=== PATIENT | female | born 1960 | race Caucasian/White ===

== ENCOUNTER 2016-11-23 13:03 | Inpatient (IN) ==
[2016-11-23] MEDS ORDERED: Ipratropium/Albuterol Neb 3 ML IH ONE (13:53)
--- NOTE | 2016-11-23 14:02 | Emergency Department Note ---
Disposition Clinical Impression: Pneumonia, Hypoxemia Dyspnea Qualifiers: Dyspnea type: shortness of breath Qualified Code(s): R06.02 - Shortness of breath Disposition: Admitted As Inpatient Condition: Fair Time of Disposition: 17:30 General Adult HPI - General Chief complaint: ED Extremity Problem,Nontraumatic Stated complaint: R/O PE/pneumonia/sepsis Time Seen by Provider: 11/23/16 13:45 Source: patient Mode of arrival: ambulatory Limitations: no limitations Nursing Notes Reviewed: Yes Vital Signs Reviewed: Yes - History of Present Illness HPI Narrative: Patient is a 56-year-old female who presents to [facility] ED with a chief complaint of difficulty breathing. States her symptoms started a few days ago. She recently had knee surgery approximately one 1 week ago. Patient was seen by the orthopedic physician's litigation assistant today who was concerned for possible pulmonary embolus versus pneumonia. Patient denies any prior history of COPD or proximal difficulty breathing. Patient does say she had an upper respiratory infection prior to the surgery for about 10 days. She did not take any medications for this. States she has had more and more exertional difficulty breathing. Denies any nausea, vomiting. She did have fever up to 101 today. No problems with urination or bowel movements. Only past medical history is chronic pain that she has had multiple leg surgeries and back surgeries. Onset (ago): day(s) Radiation: non-radiation Pain Severity: moderate Pain Scale: 5 Consistency: Worsening Improves with: nothing Worsens with: other (exertion) Associated symptoms: Reports: cough, fever/chills, headaches, shortness of breath. Denies: chest pain, nausea/vomiting Treatments Prior to Arrival: none - Related Data Home Medications Medication Instructions Recorded Confirmed Albuterol Sulfate [Albuterol 2 puff IH Q4HR PRN 11/22/15 11/23/16 Inhaler] Furosemide [Lasix] 20 mg PO DAILY PRN 11/22/15 11/23/16 Omeprazole [PriLOSEC] 40 mg PO DAILY 11/22/15 11/23/16 Oxymorphone HCl [Opana ER] 30 mg PO Q12H 11/22/15 11/23/16 Oxymorphone HCl [Opana ER] 40 mg PO Q12H 11/22/15 11/23/16 diazePAM [Valium] 10 mg PO TID 11/22/15 11/23/16 Oxycodone HCl [Oxycodone HCl] 15 mg PO Q4H PRN 11/23/16 11/23/16 Previous Rx's Medication Instructions Recorded Aspirin Enteric Coated [Aspirin EC] 162 mg PO BID #20 tablet. 11/16/16 Clindamycin [Cleocin] 150 mg PO Q6HR #7 capsule 11/16/16 Allergies Allergy/AdvReac Type Severity Reaction Status Date / Time Penicillins [PCN] AdvReac Rash Verified 11/16/16 08:45 All systems ED: reviewed and negative except as stated. Past Medical History - Past Medical History Attestation: Yes The following information was validated with the patient. Source: patient Medical history: Reports: arthritis, asthma, GERD Surgical history: Reports: cholecystectomy, knee replacement Psychiatric history: Reports: anxiety, depression - Social History Smoking Status: Never smoker Smokeless Tobacco Status: No Alcohol use: Reports: none Drug use: Reports: none Physical Exam - General Limitations: no limitations General appearance: alert, in no apparent distress - Head Head exam: atraumatic, normocephalic, normal inspection - Eye Eye exam: Present: normal appearance, PERRL, EOMI - ENT ENT exam: normal exam, normal oropharynx, mucous membranes moist - Neck Neck exam: Present: normal inspection, full ROM, trachea midline - Chest Chest inspection: Present: normal inspection, symmetric chest wall rise - Respiratory Respiratory exam: Present: wheezes - Cardiovascular Cardiovascular exam: Present: normal rhythm, tachycardia - Abdominal Exam Abdominal exam: Present: soft, Non-Tender. Absent: tenderness, distention, guarding, rebound, rigidity - Extremities Exam Extremities exam: Present: normal inspection, full ROM. Absent: tenderness, pedal edema - Neurological Exam Neurological exam: Present: alert - Psychiatric Psychiatric exam: Present: normal affect, normal mood - Skin Skin exam: Present: warm, dry, intact, normal color Course Course Narrative: Patient seen and examined. Recent knee surgery with now worsening exertional dyspnea. Concern for pneumonia versus PE. Patient is febrile and mildly tachycardic. We will get a cardiopulmonary workup. If renal function okay we will get a CT of the chest. - Reevaluation(s) Reevaluation #1: CTA of the chest did not show signs of a pulmonary embolus. Did show bibasilar atelectasis. With her fever, cough and shortness of breath as well as elevated white count, we will go ahead and treat her as sepsis from community acquired pneumonia. Patient was given 2 L IV fluid boluses. She was also started on IV azithromycin and ceftriaxone. We did do an ambulation test with pulse ox and patient desaturated to 87% with exertion. I spoke with patient about admission and patient is in agreement. I spoke with the hospitalists Shanelle Montana who has accepted patient for admission. Time: 18:22 Vital Signs Temperature 99.7 F H 11/23/16 13:07 Pulse Rate 109 11/23/16 13:07 Respiratory Rate 20 11/23/16 13:07 Blood Pressure 87/55 11/23/16 13:07 O2 Sat by Pulse Oximetry 91 11/23/16 13:07 Temperature 98.6 F 11/24/16 06:52 Pulse Rate 90 11/24/16 06:52 Respiratory Rate 16 11/24/16 06:52 Blood Pressure 150/87 11/24/16 06:52 O2 Sat by Pulse Oximetry 95 11/24/16 06:52 Oxygen Delivery Oxygen Delivery Room Air Medical Decision Making - Medical Records Medical records reviewed: Yes I reviewed the patient's medical records. - Lab Data Lab results reviewed: Yes I reviewed the patient's lab results. Result diagrams: 11/24/16 04:25 11/24/16 04:25 Lab Results 11/23/16 11/23/16 11/23/16 Range/Units 14:19 14:19 14:19 WBC 22.5 H (4.3-11.1) K/mcL RBC 4.63 (3.82-4.97) M/mcL Hgb 11.4 L (11.5-15.4) g/dL Hct 37.3 (35.3-44.9) % MCV 80.6 L (83.0-100.0) fL MCH 24.6 L (28.0-33.3) pg MCHC 30.6 L (31.6-35.5) g/dL RDW 14.5 (11.5-14.5) % Plt Count 387 (140-400) K/mcL MPV 9.4 (9.4-12.4) fL Immature Gran % 0.9 (0-4) % Seg Neutrophils % 86.7 % Lymphocytes % 6.8 % Monocytes % 2.9 % Eosinophils % 2.4 % Basophils % 0.3 % Neutrophils # 19.5 H (1.6-8.9) K/mcL Lymphocytes # 1.5 (0.6-4.6) K/mcL Monocytes # 0.7 (0.0-1.3) K/mcL Eosinophils # 0.6 (0.0-0.6) K/mcL Basophils # 0.1 (0.0-0.2) K/mcL PT (9.4-12.1) Seconds INR APTT (26.0-36.0) Seconds Sodium 136 (136-145) mEq/L Potassium 4.0 (3.5-4.5) mEq/L Chloride 100 (98-109) mEq/L Carbon Dioxide 31 H (19-29) mEq/L BUN 7 (7-20) mg/dL Creatinine 0.76 (0.57-1.11) mg/dL Est GFR ( Amer) > 60 (> 60) Est GFR (Non-Af Amer) > 60 (> 60) BUN/Creatinine Ratio 9 (6-26) Glucose 138 H (70-99) mg/dL Calculated Osmolality 282 (280-300) Lactic Acid (0.5-2.2) mmol/L Calcium 9.3 (8.6-10.8) mg/dL Troponin I 0.00 (0-0.03) ng/mL B-Natriuretic Peptide (0-100) pg/mL 11/23/16 11/23/16 11/23/16 Range/Units 14:19 16:17 16:17 WBC (4.3-11.1) K/mcL RBC (3.82-4.97) M/mcL Hgb (11.5-15.4) g/dL Hct (35.3-44.9) % MCV (83.0-100.0) fL MCH (28.0-33.3) pg MCHC (31.6-35.5) g/dL RDW (11.5-14.5) % Plt Count (140-400) K/mcL MPV (9.4-12.4) fL Immature Gran % (0-4) % Seg Neutrophils % % Lymphocytes % % Monocytes % % Eosinophils % % Basophils % % Neutrophils # (1.6-8.9) K/mcL Lymphocytes # (0.6-4.6) K/mcL Monocytes # (0.0-1.3) K/mcL Eosinophils # (0.0-0.6) K/mcL Basophils # (0.0-0.2) K/mcL PT 13.0 H (9.4-12.1) Seconds INR 1.2 APTT 28.1 (26.0-36.0) Seconds Sodium (136-145) mEq/L Potassium (3.5-4.5) mEq/L Chloride (98-109) mEq/L Carbon Dioxide (19-29) mEq/L BUN (7-20) mg/dL Creatinine (0.57-1.11) mg/dL Est GFR ( Amer) (> 60) Est GFR (Non-Af Amer) (> 60) BUN/Creatinine Ratio (6-26) Glucose (70-99) mg/dL Calculated Osmolality (280-300) Lactic Acid 1.6 (0.5-2.2) mmol/L Calcium (8.6-10.8) mg/dL Troponin I (0-0.03) ng/mL B-Natriuretic Peptide 60 (0-100) pg/mL - Radiology Data Radiology results reviewed: Yes I reviewed the patient's radiology results. Chest X-Ray 11/23/16 13:54 IMPRESSION: 1. No acute cardiopulmonary disease. D/ / Neal Keita MD / Neal Keita MD Interpreting Provider: Neal Keita MD Chest CTA 11/23/16 15:03 IMPRESSION: 1. No evidence of pulmonary embolus. 2. Bibasilar atelectasis. 3. Right lower lobe 5 mm nodule. Please see below for follow-up recommendations. RECOMMENDATIONS: Fleischner Society guidelines for follow-up and management of incidentally detected pulmonary nodules: Single Solid Nodule: Nodule size less than 6 mm In a low-risk patient, no routine follow-up. In a high-risk patient, optional CT at 12 months. - Low risk patients include individuals with minimal or absent history of smoking and other known risk factors. - High risk patients include individuals with a history or smoking or known risk factors. Radiology 2017 http://pubs.rsna.org/doi/full/10.1148/radiol.[email or web address] D/ / 11/23/2016 16:50:49 Gerry Benítez MD / Renee Rolle Interpreting Provider: Gerry Benítez MD - EKG Data EKG #1 EKG attestation: Yes I reviewed and interpreted this EKG. EKG results narrative: EKG done at 1401 shows normal sinus rhythm with a rate of [address] elevation or depression. There does appear to be a prominent Q-wave in lead 3 and inverted T waves. Normal axis. Attestation Statement - Attestation Attestation: I, Shen Flores, examined this patient and my medical decision-making was reviewed with the GEAR GENERATOR SET UP OPERATOR/PA/Advanced Practice Nurse/Resident Physician. I agree with the documented findings, disposition and treatment plan as described except to the extent set forth below. 56-year-old female presents with concerns of increasing shortness of breath. Patient states that she had a repair of her right patella within the past week, she is in a long leg cast of the right lower extremity. Patient states she becomes increasingly dyspneic with minimal exertion. Patient does report however that her symptoms had started prior to her surgery and have become increasingly worse. Patient was sent to the emergency department for rule out of PE by her primary care provider. CT angiogram of the chest does not reveal acute PE however does show atelectasis versus infiltrate of the bilateral basilar areas. Patient became hypoxic with ambulation. She will be started on antibiotics for possible pneumonia secondary to her elevated white count and deteriorating condition of the past week. Patient is comfortable with the plan for admission to hospital for further care and evaluation.
[2016-11-23] MEDS ORDERED: 0.9 % Sodium Chloride 1,000 ML IVC ONE ×2 (14:34→14:56)
[2016-11-23 14:36] LABS: Basophils # 0.1 K/mcL (0.0-0.2); Basophils % 0.3 %; Eosinophils # 0.6 K/mcL (0.0-0.6); Eosinophils % 2.4 %; Hematocrit 37.3 % (35.3-44.9); Hemoglobin 11.4 g/dL (11.5-15.4); Immature Granulocytes % 0.9 % (0-4); Lymphocytes # 1.5 K/mcL (0.6-4.6); Lymphocytes % 6.8 %; Mean Corpuscular HGB Conc 30.6 g/dL (31.6-35.5); Mean Corpuscular Hemoglobin 24.6 pg (28.0-33.3); Mean Corpuscular Volume 80.6 fL (83.0-100.0); Mean Platelet Volume 9.4 fL (9.4-12.4); Monocytes # 0.7 K/mcL (0.0-1.3); Monocytes % 2.9 %; Neutrophils # 19.5 K/mcL (1.6-8.9); Platelet Count 387 K/mcL (140-400); Red Blood Count 4.63 M/mcL (3.82-4.97); Red Cell Distribution Width 14.5 % (11.5-14.5); Segmented Neutrophils % 86.7 %
[2016-11-23 14:42] LABS: BUN/Creatinine Ratio 9 (6-26); Blood Urea Nitrogen 7 mg/dL (7-20); Calcium 9.3 mg/dL (8.6-10.8); Carbon Dioxide 31 mEq/L (19-29); Chloride 100 mEq/L (98-109); Glucose 138 mg/dL (70-99); Osmolality,Calculated 282 (280-300); Sodium 136 mEq/L (136-145); eGFR For African Americans > 60 (> 60); eGFR For Non-African Americans > 60 (> 60)
[2016-11-23] MEDS ORDERED: Azithromycin 500 MG in D5% in Water 250 ML IVPB ONE (15:56)
[2016-11-23 16:41] LABS: INR 1.2
[2016-11-23 16:43] LABS: Activated Partial Thrombo Time 28.1 Seconds (26.0-36.0)
--- NOTE | 2016-11-23 16:50 | Electrocardiograph Report ---
[place] [facility] Test Date: 2016-11-23 Pat Name: Ashley Solis Department: 105 Room: Gender: F Publicist: EVELINA : [id number] Requested By: Martina Bentley Order Number: [id number] Reading MD: Marcial Chacon MD Measurements Intervals [place] Rate: 88 P: 46 [place]: 155 QRS: 23 QRSD: 105 T: 20 QT: 363 QTc: 408 Interpretive Statements SINUS RHYTHM Electronically Signed On 11-23-2016 16:48:29 EDT by Marcial Chacon MD
--- NOTE | 2016-11-23 17:56 | Internal Med History&Physical ---
<Francia Killian - Last Filed: 11/23/16 18:37> Date of Encounter: 11/23/16 Time of Encounter: 17:30 Assessment and Plan (1) Pneumonia Current visit: Yes Status: Acute Patient reports dyspnea for 2 days, nonproductive cough today, myalgia, fatigue and fever 102 today. She was sent by Dr. Jorge's office for evaluation. On arrival to the emergency room her room air sats were 91%. She was found to be tachycardic with a low-grade fever, and hypotensive. She was given antibiotics, fluid boluses and vitals have returned to normal. Patient is one-week status post right patella surgery. She denies any sick contacts at home. Her lungs are clear throughout. She does have a history of asthma that is well controlled. Patient has leukocytosis, white cell count 22.5. Both CT and L and chest x-ray are negative for any acute cardiopulmonary disease , PE, and infiltrates. CTA chest shows bibasilar atelectasis in the right lower lobe 5 mm nodule that does not require any follow-up. We will continue Rocephin 1 g IV daily Zithromax 500 mg IV daily Oxygen titrated to maintain sats greater than 92% Monitor labs Continuous pulse ox Telemetry Qualifiers: Pneumonia type: due to unspecified organism Laterality: unspecified laterality Lung location: unspecified part of lung Qualified Code(s): J18.9 - Pneumonia, unspecified organism (2) Leukocytosis Current visit: Yes Status: Acute White count 22.5. Patient is being treated with Rocephin and Zithromax IV. Pt has recent surgical incision to R knee that cannot be visualized due to R full leg cast. Blood culture and urine cultures pending. Continue to monitor labs CT R knee ordered and pending. Qualifiers: Leukocytosis type: unspecified Qualified Code(s): D72.829 - Elevated white blood cell count, unspecified (3) Sepsis Current visit: Yes Status: Acute Pt presented to the ED and met sepsis criteria with hypotension, fever, tachycardia, and leukocytosis. She was treated with fluid boluses and IV antibiotics. Lactic acid 1.6. Vitals have returned to WNL, leukocytosis remains. Continue to monitor labs and vitals Fluid boluses for hypotension and tachycardia Tylenol for fever Qualifiers: Sepsis type: sepsis due to unspecified organism Qualified Code(s): A41.9 - Sepsis, unspecified organism (4) Dyspnea Current visit: Yes Status: Acute Plan as above. Qualifiers: Dyspnea type: shortness of breath Qualified Code(s): R06.02 - Shortness of breath (5) Painful total knee replacement Current visit: No Status: Acute Patient is 1 week postop right patella surgery. She said that she has had multiple casts on her legs due to irritation. She has a cast currently that is from toe to hip on the right side. She does have noticeable swelling to right lower extremity what is visible. We are unable to see the incision or extremity due to the cast. Continue pain medication Qualifiers: Encounter type: subsequent encounter Qualified Code(s): T84.84XD - Pain due to internal orthopedic prosthetic devices, implants and grafts, subsequent encounter (6) HTN (hypertension) Current visit: No Status: Chronic Continue home medications. Monitor vital signs per orders. Qualifiers: Hypertension type: essential hypertension Qualified Code(s): I10 - Essential (primary) hypertension (7) Obesity Current visit: No Status: Chronic Chronic. Lifestyle changes. Qualifiers: Obesity type: unspecified obesity type Obesity severity: unspecified obesity severity Qualified Code(s): E66.9 - Obesity, unspecified (8) GERD (gastroesophageal reflux disease) Current visit: No Status: Chronic Continue home medications. Qualifiers: Esophagitis presence: esophagitis presence not specified Qualified Code(s) : K21.9 - Gastro-esophageal reflux disease without esophagitis (9) Asthma Current visit: No Status: Chronic Well-controlled. Patient normally only uses a rescue inhaler. Will have albuterol treatments when necessary Duo nebs when necessary Qualifiers: Asthma severity: unspecified severity Asthma complication type: uncomplicated Qualified Code(s): J45.909 - Unspecified asthma, uncomplicated (10) DVT prophylaxis Current visit: Yes Status: Acute SHIRA rivas, patient has been ambulatory status post surgery. Will encourage ambulation. Internal Medicine - H&P: HPI Chief complaint: Fever, cough Admitted From: Home Plans for Post Hospital Care: Home History of present illness: Ms. Solis is a 56 year old female with history of asthma, hypertension, GERD, obesity, recent right knee surgery. She presents to the emergency department today with a day history of dry, nonproductive cough and difficulty breathing. She states today she had a fever of 102 degrees at home, she states that she did not feel well and she had body aches. She denies any sick contacts. She called Dr. Jorge's office and was told to come to the emergency department. On arrival her room air sats were 91%. She had a low-grade fever, she was hypotensive, and tachycardic. She was given fluid boluses and antibiotics and vital signs are stable now. She is 97% on room air, monitor is normal sinus rhythm with a rate of 88, blood pressure is 134/66. Patient is one week postop. She had a right patella surgery by Dr. Jorge. Her leg is in a full cast from toes to hip. We are unable to visualize the wound. Patient's chest x-ray was negative for cardiopulmonary disease. Her chest CT angios showed no evidence of pulmonary embolus, bibasilar atelectasis, and a right lower lobe 5 mm nodule that does not require follow-up. She does have leukocytosis white count was 22.5. We will continue to treat her with Rocephin and Zithromax. We will redraw labs in the morning and reassess. Past Med Surg Social Fam HX - Past Medical History Medical history: arthritis, asthma, GERD Psychiatric history: anxiety, depression - Past Surgical History Surgical History: cholecystectomy, knee replacement - Social History Smoking Status: Never smoker Smokeless Tobacco Status: No Alcohol use: none Drug use: none - Family History Father Hx Family Cancer: Yes (cancer) Internal Medicine - H&P: Meds Albuterol Sulfate [Albuterol Inhaler] 2 puff IH Q4HR PRN 11/22/15 [History] Furosemide [Lasix] 20 mg PO DAILY PRN 11/22/15 [History] Omeprazole [PriLOSEC] 40 mg PO DAILY 11/22/15 [History] Oxymorphone HCl [Opana ER] 30 mg PO Q12H 11/22/15 [History] Oxymorphone HCl [Opana ER] 40 mg PO Q12H 11/22/15 [History] diazePAM [Valium] 10 mg PO TID 11/22/15 [History] Aspirin Enteric Coated [Aspirin EC] 162 mg PO BID #20 tablet. 11/16/16 [Rx] Clindamycin [Cleocin] 150 mg PO Q6HR #7 capsule 11/16/16 [Rx] Oxycodone HCl [Oxycodone HCl] 15 mg PO Q4H PRN 11/23/16 [History] Allergies Penicillins [PCN] Adverse Reaction (Verified 11/16/16 08:45) Rash All Systems PM: A 10-system review of systems was performed and is negative for pertinent findings except as documented above in the HPI. - Constitutional Constitutional: fatigue, fever(s), no chills - EENT Ears: no ear pain Nose, mouth and throat: change in voice, hoarseness, no sinus pain, no sinus pressure, no sore throat - Cardiovascular Cardiovascular ROS IM: dyspnea, no chest pain, no lightheadedness, no syncope - Respiratory Respiratory: cough, dyspnea - Gastrointestinal Gastrointestinal: no abdominal pain, no diarrhea, no nausea, no vomiting - Genitourinary Genitourinary: no difficulty urinating, no urinary frequency, no urinary urgency - Musculoskeletal Musculoskeletal ROS IM: limited range of motion, myalgias - Neurological Neurological ROS: no dizziness, no headache(s), no weakness - Constitutional Vitals: Temp Pulse Resp BP Pulse Ox 99.7 F H 86 18 138/62 95 11/23/16 13:07 11/23/16 17:09 11/23/16 17:29 11/23/16 17:29 11/23/16 17:09 General appearance: Present: cooperative, A&O X 3, pleasant, no acute distress, answers questions appropriately - Head Head exam: Present: normal inspection - Eye Eye exam: Present: normal appearance, conjuntiva pink - ENT ENT exam: Present: mucous membranes moist, normal exam, normal external ear exam - Neck Neck exam general surgery: Present: normal inspection. Absent: lymphadenopathy , tenderness - Respiratory Respiratory exam: Present: CTAB. Absent: accessory muscle use, chest wall tenderness, rales, respiratory distress, rhonchi, wheezes - Cardiovascular Cardiovascular exam: Present: RRR, +S1, +S2. Absent: bradycardia, clicks, diastolic murmur, gallop, systolic murmur, tachycardia - Expanded Cardiovascular Exam Peripheral pulses: 0: Dorsalis Pedis (R) PM (unable d/t cast), 2+: Dorsalis Pedis (L) PM - GI/Abdominal GI/Abdominal exam: Present: distended, normal bowel sounds, soft. Absent: hepatomegaly, tenderness - Neurological Exam Neurological exam: Present: alert, oriented X3, no focal deficits. Absent: facial droop, speech deficit Internal Med - H&P Results - Labs CBC & Chem 7: 11/23/16 14:19 11/23/16 14:19 - EKG Data EKG shows normal: sinus rhythm - EKG Data Prior EKG available for review: yes When compared to previous EKG: there is no significant change Interpretation IM: normal EKG EKG comments: 11/23/16 18:05 rate 88, AR interval 155, QTc 408 <Leda Hill - Last Filed: 11/24/16 08:46> Date of Encounter: 11/24/16 Internal Medicine - H&P: HPI History of present illness: Ms. Solis is a 56 year old female All Systems PM: A 10-system review of systems was performed and is negative for pertinent findings except as documented above in the HPI. - Constitutional Vitals: Temp Pulse Resp BP Pulse Ox 98.6 F 90 16 150/87 95 11/24/16 06:52 11/24/16 06:52 11/24/16 06:52 11/24/16 06:52 11/24/16 06:52 Internal Med - H&P Results - Labs CBC & Chem 7: 11/24/16 04:25 11/24/16 04:25 Labs: Short CBC 11/24/16 Range/Units 04:25 WBC 12.4 H (4.3-11.1) K/mcL Hgb 10.1 L (11.5-15.4) g/dL Hct 32.4 L (35.3-44.9) % Plt Count 360 (140-400) K/mcL Neutrophils # 9.4 H (1.6-8.9) K/mcL BMP 11/24/16 04:25 Sodium 140 Potassium 3.5 Chloride 107 Carbon Dioxide 27 BUN 7 Creatinine 0.67 Glucose 106 H Calcium 8.8 Urine 11/23/16 Range/Units 19:10 Urine Color Yellow (Yellow) Urine Clarity Clear (Clear) Urine pH 7.0 (5.0-8.0) pH Units Ur Specific Sarah 1.015 (1.010-1.025) Urine Protein Negative (Neg-Trace) mg/dL Urine Glucose (UA) Normal (Normal) mg/dL - Impressions ITS Impressions Knee CT 11/23/16 18:37 IMPRESSION: 1. Status post constrained right total knee arthroplasty with long stem femoral and tibial components. No periprosthetic fracture or evidence of loosening. 2. Moderate effusion with foci of gas in the joint space. This may represent expected postoperative change. If there is any clinical concern for septic arthritis please consider arthrocentesis. D/ / Froilan Alfonso MD / Froilan Alfonso MD Interpreting Provider: Froilan Alfonso MD - Attending Attestation This is a late entry for a patient I examined and reviewed laboratory, imaging and all diagnostic data on 11/23/16. My medical decision-making was reviewed with Francia Killian - TOBI. I agree with the documented findings, disposition and treatment plan as described above. History and exam by me shows: fever of 102 at home with associated dyspnea and cough. WBC 22. CTA chest showed only atelectasis. pt has cast on right knee, will do CT knee to assess for any infection. no other source of infection. blood cultures taken. started on ceftriaxone and azithromycin for possible bronchitis.
[2016-11-23] MEDS ORDERED: Acetaminophen 325 MG TABLET PO PRN (18:16)
[2016-11-23] MEDS ORDERED: Naloxone 0.4 MG/ML INJ IVP PRN (18:18)
[2016-11-23] MEDS ORDERED: MOM Conc 10 ML UD.LIQ PO PRN (18:18)
[2016-11-23] MEDS ORDERED: Ondansetron 4 MG/2 ML VIAL IVP PRN (18:18)
[2016-11-23] MEDS ORDERED: Albuterol 2.5 MG/3 ML NEBULIZER IH PRN (18:22)
[2016-11-23] MEDS ORDERED: Ipratropium/Albuterol Neb 3 ML IH PRN (18:22)
[2016-11-23 19:38] LABS: Bilirubin,Urine Negative (Negative); Blood,Urine Negative (Negative); Clarity,Urine Clear (Clear); Color,Urine Yellow (Yellow); Glucose,Urine (UA) Normal (Normal); Ketones,Urine Negative (Negative); Leukocyte Esterase,Urine Negative (Negative); Nitrite,Urine Negative (Negative); Protein,Urine Negative (Neg-Trace); Specific Gravity,Urine 1.015 (1.010-1.025); Urobilinogen,Urine Normal (Normal)
[2016-11-23] MEDS: diazePAM 10 MG TABLET PO SCH (19:54)
[2016-11-23] MEDS: Aspirin Enteric Coated 81 MG Tablet PO SCH (19:54)
[2016-11-23] MEDS: *HR* OxyCODONE Immed Rel 15 MG TABLET PO PRN ×2 (19:54→23:53)
[2016-11-24 04:58] LABS: Basophils # 0.1 K/mcL (0.0-0.2); Basophils % 0.4 %; Eosinophils # 0.6 K/mcL (0.0-0.6); Eosinophils % 4.7 %; Hematocrit 32.4 % (35.3-44.9); Hemoglobin 10.1 g/dL (11.5-15.4); Immature Granulocytes % 0.6 % (0-4); Lymphocytes # 1.7 K/mcL (0.6-4.6); Lymphocytes % 13.8 %; Mean Corpuscular HGB Conc 31.2 g/dL (31.6-35.5); Mean Corpuscular Hemoglobin 24.9 pg (28.0-33.3); Mean Corpuscular Volume 79.8 fL (83.0-100.0); Mean Platelet Volume 9.4 fL (9.4-12.4); Monocytes # 0.6 K/mcL (0.0-1.3); Monocytes % 5.1 %; Neutrophils # 9.4 K/mcL (1.6-8.9); Platelet Count 360 K/mcL (140-400); Red Blood Count 4.06 M/mcL (3.82-4.97); Red Cell Distribution Width 14.6 % (11.5-14.5); Segmented Neutrophils % 75.4 %
[2016-11-24 05:22] LABS: BUN/Creatinine Ratio 10 (6-26); Blood Urea Nitrogen 7 mg/dL (7-20); Calcium 8.8 mg/dL (8.6-10.8); Carbon Dioxide 27 mEq/L (19-29); Chloride 107 mEq/L (98-109); Glucose 106 mg/dL (70-99); Osmolality,Calculated 288 (280-300); Potassium 3.5 mEq/L (3.5-4.5); Sodium 140 mEq/L (136-145); eGFR For African Americans > 60 (> 60); eGFR For Non-African Americans > 60 (> 60)
[2016-11-24] MEDS: *HR* OxyCODONE Immed Rel 15 MG TABLET PO PRN ×4 (06:02→22:07)
[2016-11-24] MEDS: diazePAM 10 MG TABLET PO SCH ×3 (09:17→20:35)
[2016-11-24] MEDS: Aspirin Enteric Coated 81 MG Tablet PO SCH ×2 (09:17→20:35)
--- NOTE | 2016-11-24 13:53 | Event Note ---
Date of Encounter: 11/24/16 Time of Encounter: 07:00 Patient is POD#8 - Right Knee - extensor mechanism repair. She was seen in the office yesterday, I was concerned secondary to significant change in her baseline and declining vital status. Today, she has drastically improved. Being treated for CAP, on IV antibiotics. Plan to f/up in office next week for cast assessment.
--- NOTE | 2016-11-24 14:54 | Internal Med Progress Note ---
Date of Encounter: 11/24/16 Time of Encounter: 14:51 - Assessment and plan (1) Pneumonia Current Visit: Yes Status: Acute Assessment and plan: presented with fever, cough , was hypotensive and tachycardic o presentation and wbc was 22. she was started emperically on IV antibiotics for possible pneumonia although CTA and CXR was negative for any infiltrates or clot. karen symptomatically better today and has no fever spikes florian continue IV antibiotics and will follow up cx results/ if no fever by tomm and cx negative, will de escalate antibiotcis. incentive spirometery Qualifiers: Pneumonia type: due to unspecified organism Laterality: unspecified laterality Lung location: unspecified part of lung Qualified Code(s): J18.9 - Pneumonia, unspecified organism (2) HTN (hypertension) Current Visit: No Status: Chronic Assessment and plan: monitor BP Qualifiers: Hypertension type: essential hypertension Qualified Code(s): I10 - Essential (primary) hypertension (3) Obesity Current Visit: No Status: Chronic Qualifiers: Obesity type: unspecified obesity type Obesity severity: unspecified obesity severity Qualified Code(s): E66.9 - Obesity, unspecified (4) GERD (gastroesophageal reflux disease) Current Visit: No Status: Chronic Assessment and plan: conitnue home meds Qualifiers: Esophagitis presence: esophagitis presence not specified Qualified Code(s) : K21.9 - Gastro-esophageal reflux disease without esophagitis (5) Painful total knee replacement Current Visit: No Status: Acute Assessment and plan: s/p right total knee replacement recently has some pain, s/p MRI , no signs of infection in the joint. ensure DVT prophylaxis. Qualifiers: Encounter type: subsequent encounter Qualified Code(s): T84.84XD - Pain due to internal orthopedic prosthetic devices, implants and grafts, subsequent encounter - Subjective Interval history: karen seen at the bedside, admitted for fever and possible pneumonia reports feeling better but crying as she just lost her father from cancer. she denies any chest pain, sob. no fever overnight, - Constitutional Vitals: Temp Pulse Resp BP Pulse Ox 98.7 F 88 16 138/76 93 11/24/16 11:08 11/24/16 11:08 11/24/16 11:08 11/24/16 11:08 11/24/16 11:08 General appearance: Present: cooperative, A&O X 3, pleasant, no acute distress, answers questions appropriately Exam: neck- supple chest- b/l clear , no added sounds CVS-s1 and s2, no mr//g abd-soft, non tender, bs are present ext- no edema, has a cast on the left leg. neuro- no focla defecits Internal Medicine: Result - Labs CBC & Chem 7: 11/24/16 04:25 11/24/16 04:25 Labs: Short CBC 11/24/16 Range/Units 04:25 WBC 12.4 H (4.3-11.1) K/mcL Hgb 10.1 L (11.5-15.4) g/dL Hct 32.4 L (35.3-44.9) % Plt Count 360 (140-400) K/mcL Neutrophils # 9.4 H (1.6-8.9) K/mcL BMP 11/24/16 04:25 Sodium 140 Potassium 3.5 Chloride 107 Carbon Dioxide 27 BUN 7 Creatinine 0.67 Glucose 106 H Calcium 8.8 Urine 11/23/16 Range/Units 19:10 Urine Color Yellow (Yellow) Urine Clarity Clear (Clear) Urine pH 7.0 (5.0-8.0) pH Units Ur Specific [place] 1.015 (1.010-1.025) Urine Protein Negative (Neg-Trace) mg/dL Urine Glucose (UA) Normal (Normal) mg/dL - ABG Interpretation ABG results: PT/INR, D-dimer PT 13.0 Seconds (9.4-12.1) H 11/23/16 16:17 - Impressions Impressions Knee CT 11/23/16 18:37 IMPRESSION: 1. Status post constrained right total knee arthroplasty with long stem femoral and tibial components. No periprosthetic fracture or evidence of loosening. 2. Moderate effusion with foci of gas in the joint space. This may represent expected postoperative change. If there is any clinical concern for septic arthritis please consider arthrocentesis. D/ / Froilan Alfonso MD / Froilan Alfonso MD Interpreting Provider: Froilan Alfonso MD Consult Discharge Plan - Plan Referrals: Jere Esquivel Jr, MD [Primary Care Provider] -
[2016-11-24] MEDS ORDERED: Azithromycin 500 MG in D5% in Water 250 ML IVPB SCH (16:00)
[2016-11-25] MEDS: *HR* OxyCODONE Immed Rel 15 MG TABLET PO PRN ×2 (04:21→08:29)
[2016-11-25 07:09] VITALS: BP 154/88
[2016-11-25] MEDS: Aspirin Enteric Coated 81 MG Tablet PO SCH (08:28)
[2016-11-25] MEDS: diazePAM 10 MG TABLET PO SCH (08:29)
[2016-11-25 09:10] LABS: Basophils # 0.1 K/mcL (0.0-0.2); Basophils % 0.7 %; Eosinophils # 0.5 K/mcL (0.0-0.6); Eosinophils % 6.1 %; Hematocrit 35.6 % (35.3-44.9); Hemoglobin 10.9 g/dL (11.5-15.4); Immature Granulocytes % 0.4 % (0-4); Immature Platelets 2.4 % (1.1-6.1); Lymphocytes # 1.3 K/mcL (0.6-4.6); Lymphocytes % 17.6 %; Mean Corpuscular HGB Conc 30.6 g/dL (31.6-35.5); Mean Corpuscular Hemoglobin 24.3 pg (28.0-33.3); Mean Corpuscular Volume 79.5 fL (83.0-100.0); Mean Platelet Volume 9.5 fL (9.4-12.4); Monocytes # 0.4 K/mcL (0.0-1.3); Monocytes % 4.8 %; Neutrophils # 5.3 K/mcL (1.6-8.9); Platelet Count 421 K/mcL (140-400); Red Blood Count 4.48 M/mcL (3.82-4.97); Red Cell Distribution Width 14.6 % (11.5-14.5); Segmented Neutrophils % 70.4 %
[2016-11-25 09:20] LABS: BUN/Creatinine Ratio 11 (6-26); Blood Urea Nitrogen 8 mg/dL (7-20); Calcium 9.7 mg/dL (8.6-10.8); Carbon Dioxide 26 mEq/L (19-29); Chloride 107 mEq/L (98-109); Glucose 122 mg/dL (70-99); Osmolality,Calculated 292 (280-300); Sodium 141 mEq/L (136-145); eGFR For African Americans > 60 (> 60); eGFR For Non-African Americans > 60 (> 60)
--- NOTE | 2016-11-25 10:26 | Discharge Summary ---
Date of Encounter: 11/25/16 Time of Encounter: 10:23 - Discharge Diagnosis (1) Pneumonia Priority: Primary Status: Acute Qualifiers: Pneumonia type: due to unspecified organism Laterality: unspecified laterality Lung location: unspecified part of lung Qualified Code(s): J18.9 - Pneumonia, unspecified organism (2) HTN (hypertension) Priority: Secondary Status: Chronic Qualifiers: Hypertension type: essential hypertension Qualified Code(s): I10 - Essential (primary) hypertension (3) Obesity Priority: Secondary Status: Chronic Qualifiers: Obesity type: unspecified obesity type Obesity severity: unspecified obesity severity Qualified Code(s): E66.9 - Obesity, unspecified (4) GERD (gastroesophageal reflux disease) Priority: Secondary Status: Chronic Qualifiers: Esophagitis presence: esophagitis presence not specified Qualified Code(s) : K21.9 - Gastro-esophageal reflux disease without esophagitis (5) Painful total knee replacement Priority: Secondary Status: Acute Qualifiers: Encounter type: subsequent encounter Qualified Code(s): T84.84XD - Pain due to internal orthopedic prosthetic devices, implants and grafts, subsequent encounter - Discharge Medications Prescriptions: Amoxicillin/Clavulanate [Augmentin] 875 mg PO BIDWM #10 tablet GuaiFENesin ER [Mucinex] 600 mg PO BID 10 Days Home Medications: Albuterol Sulfate [Albuterol Inhaler] 2 puff IH Q4HR PRN 11/22/15 [History] Furosemide [Lasix] 20 mg PO DAILY PRN 11/22/15 [History] Omeprazole [PriLOSEC] 40 mg PO DAILY 11/22/15 [History] Oxymorphone HCl [Opana ER] 30 mg PO Q12H 11/22/15 [History] Oxymorphone HCl [Opana ER] 40 mg PO Q12H 11/22/15 [History] diazePAM [Valium] 10 mg PO TID 11/22/15 [History] Aspirin Enteric Coated [Aspirin EC] 162 mg PO BID #20 tablet. 11/16/16 [Rx] Amoxicillin/Clavulanate [Augmentin] 875 mg PO BIDWM #10 tablet 11/25/16 [Rx] GuaiFENesin ER [Mucinex] 600 mg PO BID 10 Days 11/25/16 [Rx] Allergies/Adverse Reactions: Allergies Penicillins [PCN] Adverse Reaction (Verified 11/16/16 08:45) Rash Date of admission: 11/25/16 00:38 Primary care physician: Jere Esquivel Jr, MD Discharging clinician: Alejandro Peñaloza Anticipated date of discharge: 11/25/16 - Patient Status Disposition: Home, Self-Care Condition: Fair Functional capacity at discharge: uses cane/walker Overall status at discharge: patient is back to baseline - Discharge Instructions Follow Up With: Miriam Barrera PAC [Physician Rotoformer Backtender] - (WEB REQUEST MADE FOR IN ONE WEEK.) Jere Esquivel Jr, MD [Primary Care Provider] - (WEBREQUEST D/T THE WEEKEND) Additional Instructions: Follow-up appointments: If there is not an appointment listed below, please call your physician and schedule a follow-up appointment. If you have congestive heart failure and your symptoms return, make an appointment with your physician. Medication List: Carry an up to date list of medications you are taking at all time. We have given you an updated medication list including any new medications that you have been prescribed. Please provide that list to your primary provider Symptoms: If your condition changes or you experience any of the following symptoms, notify your physician immediately: Unusual or worsening pain, fever, persistent nausea and vomiting, bleeding, increase in swelling (especially in your legs), sudden weight gain, extreme dizziness, chest pain, increased drainage or redness from a wound or incision. Go to the emergency department if you experience a problem with breathing. Weights: If you have a history of swelling or shortness of breath, weigh yourself daily and notify your physician if you have a weight gain of two or more pounds in one day or 5 or more pounds in a week. If you experience any of the warning signs for stroke: Sudden numbness or weakness of the face, arm or leg; especially on one side of the body, sudden confusion, trouble speaking or understanding, sudden trouble seeing in one or both eyes, sudden trouble walking, dizziness, loss of balance or coordination, sudden sever headache with no cause; Call 911 or go to the emergency room. Stroke is a medical emergency. Some risk factors for stroke: Age, cigarette smoking, diabetes, excessive alcohol consumption, family history , high blood pressure, overweight, physical inactivity, prior stroke, heart attack, diagnosis of carotid artery stenosis or other artery disease. If you smoke, STOP: Smoking or tobacco use significantly increases your risk of heart and lung disease. Your chance of disease greatly increases if you continue to smoke. For more information, call the [place] tobacco quit line for smoking cessation - QUIT-NOW ( )Discharge Instructions: Total Knee Replacement Please call [facility] ([phone]), your Primary Care Physician, or report to the Emergency Room if you have any of the following symptoms: Nausea, vomiting, fever greater that 101.5, swelling, chest pain, shortness of breath, increased pain/redness/drainage/odor for your incision site, numbness/ tingling, or any other concerning symptoms. ACTIVITY:Weight-bearing as tolerated. You may progress off support (crutches or walker) as tolerated. MEDICATIONS: Upon discharge resume your home medications. Take all the medications as prescribed. Take a stool softener if taking narcotic pain medications. Stool softeners are only effective if you drink enough fluids. Drink 6-8 glass of water or fluids a day, unless this is not allowed for another health problem. Despite using stool softeners, if you haven't had a bowel movement in 3 days, please switch to a gentle laxative. Gentle laxatives are sold over the counter. You should have a bowel movement within 24 hours, if not call the office. You will be discharged from the hospital with a prescription for pain medication. You are encouraged to decrease the use of narcotic pain medication as tolerated. Should you require a refill, please call the office. [facility] prescribes narcotic pain medication for only 4-6 weeks after surgery. If you require pain medication beyond this time period, you may be referred to your Primary Care Physician or to the Pain Clinic for further evaluation. Plan ahead for refills on pain medication as many narcotics either need to be picked up at the office or mailed. It is best to call 48-72 hours in advance of needing a prescription refill so you don't run out of medication. To help control the post-operative pain, you may take NSAIDs (Aleve,Advil, Motrin, Ibuprofen, Naprosyn) or Tylenol as prescribed on the bottle in addition to the pain medication. ANTICOAGULATION (blood thinners): Continue your Aspirin, Lovenox or Coumadin as prescribed to help prevent a blood clot in the leg or in the lungs. As long as your incision remains dry and you tolerate the NSAIDs (Aleve, Advil, Motrin, ibuprofen, naprosyn), it is OK to use the NSAIDS while you are taking your anticoagulation medication. Should your incision start to drain, stop the NSAID and contact our office. Common symptoms of blood clot in the legs include: localized pain, swelling, calf tenderness, redness or discoloration of the skin. Blood clot in the lung symptoms include: shortness of breath, rapid pulse, sweating, and chest pain that worsens with deep breathing, coughing up blood, lightheadedness, feelings of anxiety. If you experience any of these symptoms notify your physician immediately, go to the emergency room, or if having trouble breathing, call 911. WOUND CARE: Leave the dressing on for 7 to 10days. You may change the dressing if it becomes saturated greater than 50%. Do not get the dressing wet at anytime. Wash your hands with antibacterial soap, rinse and dry prior to any wound care. If you have troy the visiting nurse or rehab facility can remove the stapes 10-14 days after surgery and place steri-strips across the wound. Leave the steri-strips in place until they fall off on their won. You may let water from the shower run on top of the steri-strips. If you do not have a visiting nurse or rehab facility, you will need to return to the office at 10-14 days for the troy to be removed. If you have itching or redness around the dressing call the office. FOLLOW-UP: Please follow up with your surgeon in the orthopedic clinic in 4 weeks from the day of surgery. If you have troy that need to be removed, you will need to come back to the office in 10-14 days from the day of surgery. - Diet and Activity Activity: as per physical therapy Diet: advance to your usual diet Interval History: Ms. Solis is a 56 year old female with history of asthma, hypertension, GERD, obesity, recent right knee surgery. Patient reports dyspnea for 2 days, nonproductive cough , myalgia, fatigue and fever 102 today. She was sent by Dr. Jorge's office for evaluation. On arrival to the emergency room her room air sats were 91%. She was found to be tachycardic with a low-grade fever, and hypotensive. She was given antibiotics, fluid boluses and vitals have returned to normal. Patient is one-week status post right patella surgery. She denies any sick contacts at home. Her lungs are clear throughout. She does have a history of asthma that is well controlled. Patient has leukocytosis, white cell count 22.[address] and L and chest x-ray are negative for any acute cardiopulmonary disease , PE, and infiltrates. CTA chest shows bibasilar atelectasis in the right lower lobe 5 mm nodule that does not require any follow-up. sputum culture was positive for gram positive cocci, she was continued emperically on IV antibiotics for possible developing pneumonia. seh improved clinically on IV antibiotics, leukocytosis improved and clinically she felt better. She is being discharged today in stable condition on oral antibiotics. She was also followed by orthopedics,CT of the knee was done which showed no signs of infection. She will follow up with orthopedics as outpatient Hospital course: Ms. Solis is a 56 year old female - Time Spent with Patient Total time spent providing and/or coordinating discharge services: - Constitutional Vitals: Temp Pulse Resp BP Pulse Ox 98.6 F 88 18 154/88 96 11/25/16 07:08 11/25/16 07:08 11/25/16 07:08 11/25/16 07:08 11/25/16 07:08 General appearance: Present: cooperative, A&O X 3, pleasant, no acute distress, answers questions appropriately Exam: - Head Head exam: Present: normal inspection - Eye Eye exam: Present: normal appearance, conjuntiva pink - ENT ENT exam: Present: mucous membranes moist, normal exam, normal external ear exam - Neck Neck exam general surgery: Present: normal inspection. Absent: lymphadenopathy , tenderness - Respiratory Respiratory exam: Present: CTAB. Absent: accessory muscle use, chest wall tenderness, rales, respiratory distress, rhonchi, wheezes - Cardiovascular Cardiovascular exam: Present: RRR, +S1, +S2. Absent: bradycardia, clicks, diastolic murmur, gallop, systolic murmur, tachycardia - GI/Abdominal GI/Abdominal exam: Present: distended, normal bowel sounds, soft. Absent: hepatomegaly, tenderness - Neurological Exam Neurological exam: Present: alert, oriented X3, no focal deficits. Absent: facial droop, speech deficit
== END 2016-11-25 11:45 | disposition home or self-care (01) | DRG 871 ==
LOC: EMEROO 13:03 → 3NENU 13:03
PROVIDERS: ADMIT Registered Nurse; ATTEND Internal Medicine Endocrinology, Diabetes & Metabolism